=== PATIENT | female | born 1980 | race Caucasian/White ===

== ENCOUNTER → 2017-07-10 07:10 | Outpatient (CLI) | payer SELFPAY ==
[2017-07-10 09:35] LABS: Cholesterol 110 mg/dL (200); Glucose 80 mg/dL (74-106); High Density Lipoprotein 68 mg/dL; Triglycerides 38 mg/dL; Very Low Density Lipoprotein 8 mg/dL (5-40)
== END ==
PROVIDERS: Visit Provider Otolaryngology
DX: Z00.00 Encounter for general adult medical examination without abnormal findings (principal)
CPT/HCPCS: 36415; 80061; 82947